=== PATIENT | female | born 1970 | race Caucasian/White ===

== ENCOUNTER 2018-02-17 14:31 | Emergency (ER) | payer MEDICAID, SELFPAY ==
[~2018-02-17] VITALS: Ht 170.2 cm; Wt 86.0 kg
[2018-02-17 14:39] VITALS: BP 130/75
== END 2018-02-17 16:54 | disposition home or self-care (01) ==
LOC: ED 16:32
DX: S50.02XA Contusion of left elbow, initial encounter (principal); S70.02XA Contusion of left hip, initial encounter; S80.02XA Contusion of left knee, initial encounter; Z96.652 Presence of left artificial knee joint; F17.200 Nicotine dependence, unspecified, uncomplicated; W19.XXXA Unspecified fall, initial encounter; Y93.89 Activity, other specified; Y99.8 Other external cause status; Y92.89 Other specified places as the place of occurrence of the external cause
CPT/HCPCS: 72072; 72110; 99284